=== PATIENT | male | born 2000 | race Two or more races ===

== ENCOUNTER 2024-04-13 16:30 | Emergency (ER) | payer OTHER ==
[~2024-04-13] VITALS: Ht 167.6 cm; Wt 78.0 kg
[2024-04-13] MEDS ORDERED: TETANUS DIPHTHERIA TOX. ADSOR 5 ML VIAL IM ONE (17:40)
[2024-04-13] MEDS ORDERED: KETOROLAC TROMETHAMINE 60 MG VIAL IM ONE ×2 (17:40→17:45)
[2024-04-13] MEDS ORDERED: LIDOCAINE HCL 1% 10ML VIAL ONE (17:40)
[2024-04-13] MEDS ORDERED: TETANUS & DIPHTHERIA TOX,ADULT 0.5 ML VIAL IM ONE (17:45)
[2024-04-13] MEDS ORDERED: CIPROFLOXACIN HCL 500 MG TABLET PO ONE (17:45)
[2024-04-13] MEDS ORDERED: LIDOCAINE HCL 1% 10ML VIAL PERCUT ONE (17:45)
[2024-04-13] MEDS ORDERED: CIPRO250 MG PO (17:55)
[2024-04-13] MEDS ORDERED: PEPCID AC20 MG PO (17:55)
== END 2024-04-13 18:01 | disposition home or self-care (01) ==
LOC: ER 16:32
DX: S61.219A Laceration without foreign body of unspecified finger without damage to nail, initial encounter (principal); X58.XXXA Exposure to other specified factors, initial encounter; Y93.89 Activity, other specified; Y92.89 Other specified places as the place of occurrence of the external cause; Y99.8 Other external cause status; Z88.0 Allergy status to penicillin
CPT/HCPCS: 12001; 96372; 99282; J1885